=== PATIENT | female | born 1965 | race African-American/Black ===

== ENCOUNTER 2017-12-26 11:04 | Emergency (ER) | payer BC, MEDICAID ==
[~2017-12-26] VITALS: Ht 157.5 cm; Wt 83.0 kg
[2017-12-26 11:22] VITALS: BP 137/70
== END 2017-12-26 12:45 | disposition home or self-care (01) ==
LOC: ER 11:04
DX: J20.9 Acute bronchitis, unspecified (principal)

== ENCOUNTER 2018-06-20 12:02 | Emergency (ER) | payer BC ==
[~2018-06-20] VITALS: Ht 157.5 cm; Wt 81.6 kg
[2018-06-20 12:22] VITALS: BP 127/56
[2018-06-20 13:29] LABS: Urine Bacteria NONE SEEN /hpf (None Seen); Urine Blood Negative /uL (Negative); Urine Specific Gravity 1.009 (1.001-1.035); Urine WBC 2 /hpf (0 - 5)
[2018-06-20] MEDS ORDERED: KETOROLAC TROMETH 60MG/2ML VIAL IM ONE (14:00)
== END 2018-06-20 14:36 | disposition home or self-care (01) ==
LOC: ER 12:02
DX: N20.0 Calculus of kidney (principal); N39.0 Urinary tract infection, site not specified
CPT/HCPCS: 74176; 81001; 96372; 99285; J1885